=== PATIENT | female | born 1950 | race Asian ===

== ENCOUNTER → 2016-12-01 | Outpatient (CLI) | payer OTHER ==
[~2016-12-01] MED LIST: ALBU8HFA IH; BUDE10.2 IH; DABI75CA3 PO; HYDR25TA PO; LOSA50TA37 PO; LOVA20 PO; METF500T4 PO; METO-325 PO; NITR.4 SL
== END | disposition home or self-care (01) ==
LOC: RESP 10:14
PROVIDERS: ATTEND Internal Medicine Critical Care Medicine
DX: J98.4 Other disorders of lung (principal)
CPT/HCPCS: 94010; 94726; 94727; 94729

== ENCOUNTER 2017-03-06 16:48 | Emergency (ER) | payer OTHER ==
[~2017-03-06] VITALS: Ht 149.9 cm; Wt 50.0 kg
[~2017-03-06 16:48] MED LIST changes: -METO-325 PO; +METO-558 PO; +MONT10TA21 PO
[2017-03-06] MEDS ORDERED: SITA100 PO (17:37)
[2017-03-06] MEDS ORDERED: OMEP20 PO (17:37)
[2017-03-06 17:42] LABS: GLUCOSE,POINT OF CARE 102 MG/DL (70-110)
[2017-03-06 18:11] LABS: APPEARANCE,URINE CLEAR (CLEAR); GLUCOSE, URINE (UA) NEGATIVE (NEGATIVE); KETONES,URINE NEGATIVE (NEGATIVE); LEUKOCYTE ESTERASE ,URINE LARGE (NEGATIVE); OCCULT BLOOD,URINE MODERATE (NEGATIVE); PH,URINE 6.5 (5.0-8.0); PROTEIN,URINE NEGATIVE (NEGATIVE)
[2017-03-06 18:29] LABS: SQUAMOUS EPITHELIAL CELL,UR Moderate /LPF (None Seen)
[2017-03-06 18:30] LABS: WBC,URINE 26-50 /HPF (0-5)
[2017-03-06 19:06] LABS: BASOPHILS % (AUTO) 0.3 % (0.0-2.0); EOSINOPHILS % (AUTO) 0.5 % (1.0-6.0); HEMATOCRIT 36.3 % (36-46); HEMOGLOBIN 12.2 g/dL (12.0-16.0); LYMPHOCYTES # (AUTO) 2.1 K/uL (1.0-4.8); LYMPHOCYTES % (AUTO) 24.7 % (22.0-44.0); MEAN CORPUSCULAR HGB CONC 33.7 G/dL (31.0-37.0); MEAN CORPUSCULAR VOLUME 89 fL (80-100); MONOCYTES # (AUTO) 0.6 K/uL (0.1-1.0); MONOCYTES % (AUTO) 6.8 % (2.0-9.0); NEUTROPHILS # (AUTO) 5.8 K/uL (1.8-7.7); NEUTROPHILS % (AUTO) 67.7 % (40.0-70.0); PLATELET COUNT (AUTO) 176 K/uL (150-450); RED BLOOD CELL COUNT(AUTO) 4.08 MIL/uL (4.00-5.20); RED CELL DISTRIBUTION WIDTH 13.5 % (11.5-14.5); WHITE BLOOD COUNT (AUTO) 8.5 K/uL (4.5-11.0)
[2017-03-06 19:14] LABS: INR 1.3 (0.9-1.1); PROTHROMBIN TIME 13.3 SEC (9.4-11.6)
[2017-03-06 19:15] LABS: CALCIUM, TOTAL 9.2 mg/dL (8.8-10.5); CREATININE 0.99 mg/dL (0.60-1.30); POTASSIUM 3.6 mmol/L (3.5-5.1)
[2017-03-06 19:31] VITALS: BP 145/78
[2017-05-18] MEDS ORDERED: BECL8.7A6 IH (11:14)
== END 2017-03-06 19:59 | disposition home or self-care (01) ==
LOC: EMS 16:50
DX: N39.0 Urinary tract infection, site not specified (principal); R31.9 Hematuria, unspecified; I25.10 Atherosclerotic heart disease of native coronary artery without angina pectoris; E78.00 Pure hypercholesterolemia, unspecified; E11.9 Type 2 diabetes mellitus without complications; J45.909 Unspecified asthma, uncomplicated; I10 Essential (primary) hypertension
CPT/HCPCS: 82962; 87086; 99284

== ENCOUNTER 2019-08-04 14:19 | Emergency (ER) | payer MEDICARE, MEDICAID ==
[~2019-08-04] VITALS: Ht 147.3 cm; Wt 60.0 kg
[~2019-08-04 14:19] MED LIST changes: +BECL8.7A6 IH; -BUDE10.2 IH; +HYDR-1475 PO; -HYDR25TA PO; +LOSA-88 PO; -LOSA50TA37 PO; +METF-960 PO; -METF500T4 PO; -MONT10TA21 PO; -NITR.4 SL; +NITR0.4T52 SL
[2019-08-04] MEDS ORDERED: OMEP20 PO (14:45)
[2019-08-04] MEDS ORDERED: DABI150 PO (14:45)
[2019-08-04] MEDS ORDERED: SITA100 PO (14:45)
[2019-08-04] MEDS ORDERED: METF-445 PO (14:45)
[2019-08-04 14:50] LABS: GLUCOSE,POINT OF CARE 87 MG/DL (70-110)
[2019-08-04] MEDS ORDERED: SODIUM CHLORIDE 0.9% 1,000 ML IV ONE (15:15)
[2019-08-04 15:41] LABS: BASOPHILS % (AUTO) 0.4 % (0.0-2.0); EOSINOPHILS % (AUTO) 0.3 % (1.0-6.0); HEMATOCRIT 37.1 % (36-46); HEMOGLOBIN 12.2 g/dL (12.0-16.0); LYMPHOCYTES # (AUTO) 2.3 K/uL (1.0-4.8); MEAN CORPUSCULAR HEMOGLOBIN 27.8 pg (26.0-34.0); MEAN CORPUSCULAR VOLUME 84 fL (80-100); MONOCYTES # (AUTO) 0.8 K/uL (0.1-1.0); MONOCYTES % (AUTO) 6.2 % (2.0-9.0); NEUTROPHILS # (AUTO) 9.1 K/uL (1.8-7.7); NEUTROPHILS % (AUTO) 74.1 % (40.0-70.0); PLATELET COUNT (AUTO) 212 K/uL (150-450); RED BLOOD CELL COUNT(AUTO) 4.41 MIL/uL (4.00-5.20); RED CELL DISTRIBUTION WIDTH 13.4 % (11.5-14.5)
[2019-08-04 15:52] LABS: CALCIUM, TOTAL 9.3 mg/dL (8.8-10.5); CREATININE 1.7 mg/dL (0.60-1.30); POTASSIUM 3.9 mmol/L (3.5-5.1)
[2019-08-04 16:16] LABS: ALBUMIN 3.7 g/dL (3.4-5.0); BILIRUBIN,TOTAL 0.7 mg/dL (0.1-1.0); TOTAL PROTEIN, SERUM 7.7 g/dL (6.4-8.2)
[2019-08-04 16:35] LABS: APPEARANCE,URINE CLEAR (CLEAR); BILIRUBIN,URINE NEGATIVE (NEGATIVE); GLUCOSE, URINE (UA) NEGATIVE (NEGATIVE); KETONES,URINE NEGATIVE (NEGATIVE); LEUKOCYTE ESTERASE ,URINE TRACE (NEGATIVE); NITRATE,URINE NEGATIVE (NEGATIVE); OCCULT BLOOD,URINE SMALL (NEGATIVE); PROTEIN,URINE TRACE (NEGATIVE); UROBILINOGEN,URINE 0.2 mg/dL (<=1.0)
[2019-08-04] MEDS ORDERED: ONDANSETRON HCL 4 MG/2 ML VIAL IVP ONE (17:00)
[2019-08-04 17:07] LABS: BACTERIA,URINE None Seen /HPF (None Seen); RBC,URINE 0-2 /HPF (0-2); SQUAMOUS EPITHELIAL CELL,UR Few /LPF (None Seen); WBC,URINE 0-2 /HPF (0-5)
[2019-08-04 17:08] LABS: TRANSITIONAL EPI CELLS,URINE Few /LPF (None Seen)
[2019-08-04 18:52] LABS: GLUCOSE,POINT OF CARE 92 MG/DL (70-110)
[2019-08-04 19:45] VITALS: BP 119/58
== END 2019-08-04 20:35 | disposition short-term general hospital (02) ==
LOC: EMS 14:21
DX: N19 Unspecified kidney failure (principal); R79.89 Other specified abnormal findings of blood chemistry; R11.10 Vomiting, unspecified; R07.89 Other chest pain; E11.9 Type 2 diabetes mellitus without complications; E78.00 Pure hypercholesterolemia, unspecified; I11.9 Hypertensive heart disease without heart failure; I25.10 Atherosclerotic heart disease of native coronary artery without angina pectoris; J45.909 Unspecified asthma, uncomplicated; Z95.0 Presence of cardiac pacemaker; Z79.899 Other long term (current) drug therapy; Z79.84 Long term (current) use of oral hypoglycemic drugs
CPT/HCPCS: 36415; 74022; 80053; 81001; 82550; 82962; 83690; 83880; 84484; 85025; 93005; 96361; 96374; 99285; J2405; J7030